=== PATIENT | female | born 1965 | race Two or more races ===

== ENCOUNTER → 2018-07-09 | Outpatient (CLI) | payer OTHER ==
[~2018-07-09] VITALS: Ht 154.9 cm; Wt 61.2 kg
--- NOTE | 2018-07-09 22:46 | Consultation ---
DATE OF CONSULTATION: 07/09/2018 CHIEF COMPLAINT: Screening colonoscopy evaluation and chronic constipation. HISTORY OF PRESENT ILLNESS: The patient is a very pleasant 52-year-old [place] female with past history of breast cancer, status post mastectomy, presents to our office for evaluation of screening colonoscopy. The patient also complained of constipation and bloating. PAST MEDICAL HISTORY: Breast cancer. PAST SURGICAL HISTORY: mastectomy. MEDICATIONS: Vitamin D and atorvastatin. Please see medication reconciliation list. ALLERGIES: No known drug allergies. PHYSICAL EXAMINATION: VITAL SIGNS: Temperature 98.1, pulse 63, respirations 20, and blood pressure is 104/64. HEENT: Normocephalic and atraumatic. Sclerae are anicteric. NECK: Supple. No obvious evidence of lymphadenopathy. CARDIOVASCULAR: Regular rate and rhythm plus S1 and S2. No obvious murmur. LUNGS: Clear to auscultation bilaterally. ABDOMEN: Positive bowel sounds. Soft and nontender. No rebound. No guarding. No peritoneal sign. EXTREMITIES: No cyanosis. No clubbing. No edema. ASSESSMENT AND PLAN: 1. Screening colonoscopy evaluation. Plan for when insurance approve it. Also, the patient has confirmation. The patient was given instructions with prep and waiting for authorization. 2. Chronic constipation. The patient was given 72. Apparently, Colace and MiraLAX was not working for her. She was given sample of 72, and also a prescription for it. 3. Abdominal bloating, possibly secondary to . The patient was given a trial of probiotics one capsule daily. Consider Xifaxan . Deandre Rodriguez M.D. DR: HANNAH JOB#: [id number] CC:
[2018-07-10 09:23] VITALS: BP 104/64
== END | disposition home or self-care (01) ==
LOC: EDBD → PAN 13:33 → EDBD 13:33 → MERGE 13:33
DX: K59.00 Constipation, unspecified (principal); R14.0 Abdominal distension (gaseous); Z85.3 Personal history of malignant neoplasm of breast; Z90.10 Acquired absence of unspecified breast and nipple
CPT/HCPCS: 99202

== ENCOUNTER 2018-08-26 09:36 | Outpatient (CLI) | payer MEDICAID, OTHER ==
[2018-08-26 10:02] VITALS: BP 104/70
[2018-08-26] MEDS ORDERED: AUGMENTIN 875-1 EAC1 ORAL (10:03)
--- NOTE | 2018-08-26 10:09 | General Progress Note ---
Assessment/Plan Problem List: (1) Diverticulitis ICD Codes: K57.92 - Diverticulitis of intestine, part unspecified, without perforation or abscess without bleeding SNOMED: 952720721 (2) Diverticulosis ICD Codes: K57.90 - Diverticulosis of intestine, part unspecified, without perforation or abscess without bleeding SNOMED: 750350072 (3) Chronic constipation ICD Codes: K59.09 - Other constipation SNOMED: 991697396 (4) Hemorrhoid ICD Codes: K64.9 - Unspecified hemorrhoids SNOMED: 09295605 Plan: on augmentin for recent diverticulitis add linzess 145 add Sits bath add anusol-HC repeat colon in 5 years Subjective ROS Limited/Unobtainable: Yes Allergies: Coded Allergies: ACETAMINOPHEN (Verified Allergy, Mild, 07/10/18) vomiting HYDROCODONE (Verified Allergy, Mild, 07/10/18) vomiting Objective Last 24 Hour Vital Signs Date Time Temp Pulse Resp B/P (MAP) Pulse Ox O2 Delivery O2 Flow Rate FiO2 08/26/18 10:02 98.1 71 18 104/70 100 General Appearance: alert EENT: normal ENT inspection Neck: supple Cardiovascular: normal rate Respiratory/Chest: decreased breath sounds Abdomen: normal bowel sounds, non tender, soft Extremities: non-tender Deandre Rodriguez MD Aug 26, 2018 10:09
== END 2018-08-26 15:11 | disposition home or self-care (01) ==
LOC: PAN 09:36
DX: K57.92 Diverticulitis of intestine, part unspecified, without perforation or abscess without bleeding (principal); K59.09 Other constipation; K64.9 Unspecified hemorrhoids; Z88.6 Allergy status to analgesic agent
CPT/HCPCS: 99212